=== PATIENT | female | born 1960 | race Two or more races ===

== ENCOUNTER 2016-06-11 11:09 | Emergency (ER) | payer SELFPAY ==
[~2016-06-11] VITALS: Ht 157.5 cm; Wt 68.0 kg
[2016-06-11 12:46] LABS: Basophils # (auto) 0 uL; Basophils % (auto) 0.5 % (0.0-2.0); Eosinophils # (auto) 0.1 uL; Eosinophils % (auto) 1.3 % (0.0-7.0); Hematocrit 44.2 % (36.0-46.0); Hemoglobin 14.5 g/dL (12.2-16.2); Lymphocytes # (auto) 2.2 uL; Lymphocytes % (auto) 33.3 % (10.0-50.0); Mean Corpuscular Hemoglobin 28.4 pg (28.0-32.0); Mean Corpuscular Hgb Conc. 32.8 g/dL (32.0-36.0); Mean Corpuscular Volume 86.7 fL (80.0-100.0); Mean Platelet Volume 8.9 fL (7.4-10.4); Monocytes # (auto) 0.4 uL; Monocytes % (auto) 5.8 % (0.0-12.0); Neutrophils # (auto) 3.9 uL; Neutrophils % (auto) 59.1 % (37.0-80.0); Platelet Count (auto) 216 10^3/uL (140-450); Red Cell Distribution Width 14.1 % (11.6-16.0); White Blood Cell 6.6 10^3/uL (4.4-10.8)
[2016-06-11 13:13] LABS: Albumin 3.9 g/dL (3.4-5.0); Calcium 8.7 mg/dL (8.5-10.1); Potassium 3.7 mmol/L (3.5-5.1)
[2016-06-11 13:15] LABS: BUN/Creatinine Ratio 22.4
[2016-06-11 13:29] LABS: Bilirubin, Total 0.2 mg/dL (0.2-1.0); Total Protein 7.2 g/dL (6.4-8.2)
[2016-06-11 14:15] VITALS: BP 128/95
[2016-06-11] MEDS ORDERED: traMADol HCL 50 MG TAB PO ONE (14:15)
== END 2016-06-11 14:28 | disposition home or self-care (01) ==
LOC: ER 11:09
DX: G44.209 Tension-type headache, unspecified, not intractable (principal)
CPT/HCPCS: 36415; 70450; 80053; 84484; 85025; 85049; 93005

== ENCOUNTER 2018-09-28 09:57 | Emergency (ER) | payer OTHER ==
[~2018-09-28] VITALS: Ht 160 cm; Wt 68.0 kg
[2018-09-28 10:33] LABS: Basophils # (auto) 0.1 uL; Basophils % (auto) 0.9 % (0.0-2.0); Eosinophils # (auto) 0.2 uL; Eosinophils % (auto) 2.5 % (0.0-7.0); Hematocrit 46.2 % (36.0-46.0); Hemoglobin 15.6 g/dL (12.2-16.2); Lymphocytes # (auto) 3.2 uL; Lymphocytes % (auto) 53.4 % (10.0-50.0); Mean Corpuscular Hemoglobin 29.7 pg (28.0-32.0); Mean Corpuscular Hgb Conc. 33.8 g/dL (32.0-36.0); Mean Corpuscular Volume 87.7 fL (80.0-100.0); Monocytes # (auto) 0.4 uL; Monocytes % (auto) 7.1 % (0.0-12.0); Neutrophils # (auto) 2.1 uL; Neutrophils % (auto) 36.1 % (37.0-80.0); Nucleated Red Blood Cells % 0.1 %; Platelet Count (auto) 222 10^3/uL (140-450); Red Blood Cells 5.27 10^6/uL (4.0-5.20); Red Cell Distribution Width 14.2 % (11.8-14.3); White Blood Cell 5.9 10^3/uL (4.4-10.8)
[2018-09-28 10:49] LABS: Albumin 3.7 g/dL (3.4-5.0); Anion Gap 12 (5-15); Blood Urea Nitrogen 9 mg/dL (7-18); Calcium 8.8 mg/dL (8.5-10.1); Carbon Dioxide 22 mmol/L (21-32); Chloride 109 mmol/L (98-107); Glucose 158 mg/dL (74-106); Magnesium 2.2 mg/dL (1.6-2.6); Potassium 3.4 mmol/L (3.5-5.1); Sodium 143 mmol/L (136-145)
[2018-09-28 10:54] LABS: Alanine Aminotransferase 22 U/L (13-56); Alkaline Phosphatase 95 U/L (45-117); Aspartate Aminotransferase 12 U/L (15-37); BUN/Creatinine Ratio 12.9; Bilirubin, Total 0.5 mg/dL (0.2-1.0); GFR African American 111 mL/min; GFR Non-African American 92 mL/min
[2018-09-28] MEDS ORDERED: SODIUM CHLORIDE 0.9% 1,000 ML IV ONE (11:15)
[2018-09-28] MEDS ORDERED: ONDANSETRON HCL 4 MG/2 ML VIAL IV ONE (11:15)
[2018-09-28] MEDS ORDERED: MORPHINE SULF INJ 2 MG/ML SYRINGE 1ML IV ONE (11:15)
[2018-09-28] MEDS ORDERED: MECLIZINE HCL 25 MG TAB PO ONE ×2 (13:00→17:30)
[2018-09-28] MEDS ORDERED: POTASSIUM CHL 20 Meq TABLET PO ONE (16:15)
[2018-09-28 17:00] VITALS: BP 139/67
== END 2018-09-28 17:55 | disposition home or self-care (01) ==
LOC: EDBD 09:57 → ER 10:05
DX: G45.9 Transient cerebral ischemic attack, unspecified (principal); D48.60 Neoplasm of uncertain behavior of unspecified breast; K21.9 Gastro-esophageal reflux disease without esophagitis; I25.2 Old myocardial infarction; Z90.710 Acquired absence of both cervix and uterus
CPT/HCPCS: 36415; 70450; 71045; 80053; 83735; 84484; 85025; 93005; 94761; 96361; 96374; 96375; 99284; J2270; J2405; J7030; J8597